=== PATIENT | male | born 1965 | race African-American/Black ===

== ENCOUNTER 2021-08-30 11:35 | Emergency (ER) | payer OTHER ==
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
[2021-08-30] MEDS ORDERED: KETOROLAC 30 MG/ML INJ ONE (13:17)
[2021-08-30 13:44] VITALS: BP 154/95; TEMP 97.6; O2SAT 99
== END 2021-08-30 13:40 | disposition home or self-care (01) ==
LOC: ER 11:35
DX: S00.80XA Unspecified superficial injury of other part of head, initial encounter (principal); W18.30XA Fall on same level, unspecified, initial encounter; Y93.9 Activity, unspecified; Y92.9 Unspecified place or not applicable
CPT/HCPCS: 70450; 72125; 96372; 99283